=== PATIENT | female | born 1980 | race Caucasian/White ===

== ENCOUNTER 2023-10-24 17:53 | Emergency (ER) | payer SELFPAY ==
[2023-10-24 18:01] VITALS: BP 107/77; PULSE 71; RESP 16; TEMP 36.4; O2SAT 99; BMI 25.4
--- NOTE | 2023-10-24 18:53 | ED_ITS ---
HPI - Abdominal Pain 2 General: Chief Complaint: Abdominal Pain Stated Complaint: Abd pain Time Seen by Provider: 10/24/23 18:51 History of Present Illness: 43-year-old female comes in today for co mplaints of nausea vomiting diarrhea x 3 days. 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 Patient reports no other medical problems. Patient appears nontoxic. Patient appears in mild to no pain. Associated Symptoms: Reports diarrhea, nausea and vomiting Review of Systems 2 General: Reports: 10 or more systems reviewed and unremarkable except in HPI and below GI: Reports: nausea, vomiting and diarrhea Physical Exam 2 Const: COMMON NORMALS: alert HENMT: COMMON NORMALS: normocephalic HEAD & SCALP: normocephalic THROAT: posterior oropharynx normal Neck/C-Spine: COMMON NORMALS: full ROM Resp: COMMON NORMALS: normal respiratory effort and clear to auscultation bilaterally AUSCULTATION: clear to auscultation bilaterally Cardio: COMMON NORMALS: regular rate and regular rhythm RATE: regular rate RHYTHM: regular rhythm GI: COMMON NORMALS: Soft to palpation and non-tender PALPATION: Yes Soft to palpation Back/Pelvis: COMMON NORMALS: thoracic and lumbar spine normal to inspection Neuro: SENSORIUM/ORIENTATION: Yes alert Course 2 Vital Signs: Vital signs: Vital Signs Temperature 97.5 F L 10/24/23 18:01 Pulse Rate 71 10/24/23 20:23 Respiratory Rate 16 10/24/23 20:23 Blood Pressure 108/70 10/24/23 20:23 Pulse Oximetry 100 10/24/23 20:23 Oxygen Delivery Me thod Room Air 10/24/23 18:01 MDM - Abdominal Pain Medical Decision Making Patient presents with 3-day history of nausea vomiting diarrhea. Patient appears nontoxic. Patient appears in mild to no pain. Respirations are even. Abdomen soft nontender. Differential diagnosis includes but not limited to bowel obstruction, gastroenteritis, dehydration. CBC was unremarkable. CMP had a sodium of 132. Patient was given a dose of Lomotil and 1 dose of Bentyl but left prior to taking the medication. I discussed with patient the need to wait until all test results are back the patient did not want to wait for further testing. Initial review of the x-ray noted large amount of gas and air pattern in the bowel that could be suggestive of ileus or small bowel obstruction. Patient did not want to wait further for any further testing and left AGAINST MEDICAL ADVICE. Lab Data 10/24/23 19:35 10/24/23 19:35 Labs/Radiology: Laboratory Results WBC 7.62 10^3/uL (3.29-11.43) 10/24/23 19:35 RBC 5.20 10^6/uL (3.85-5.65) 10/24/23 19:35 Hgb 15.60 g/dL (11.27-16.99) 10/24/23 19:35 Hct 50.8 % (36-47) H 10/24/23 19:35 MCV 97.7 fl (85-98) 10/24/23 19:35 MCH 30.0 pg (27-33) 10/24/23 19:35 MCHC 30.7 g/dL (30-55) 10/24/23 19:35 RDW 13.9 % (12.1-15.1) 10/24/23 19:35 Plt Count 253 10^3/cmm (157-399) 10/24/23 19:35 MPV 9.5 fL (7.4-10.4) 10/24/23 19:35 Neut % (Auto) 70.7 % 10/24/23 19:35 Lymph % (Auto) 19.3 % 10/24/23 19:35 [place] % (Auto) 8.8 % 10/24/23 19:35 Eos % (Auto) 0.4 % 10/24/23 19:35 Baso % (Auto) 0.3 % 10/24/23 19:35 Neut # (Auto) 5.39 10^3/uL (1.8-7.7) 10/24/23 19:35 Lymph # (Auto) 1.5 10^3/uL (0.8-4.8) 10/24/23 19:35 [place] # (Auto) 0.7 10^3/uL (0.2-0.9) 10/24/23 19:35 Eos # (Auto) 0.0 10^3/uL (0.0-0.8) 10/24/23 19:35 Baso # (Auto) 0.0 10^3/uL (0.0-0.1) 10/24/23 19:35 Nucleated RBC % (auto) 0 % 10/24/23 19:35 Nucleated RBCs # 0.0 /100WBC 10/24/23 19:35 Sodium 132 mmol/L (136-145) L 10/24/23 19:35 Potassium 3.6 mmol/L (3.5-5.1) 10/24/23 19:35 Chloride 102 mmol/L (98-107) 10/24/23 19:35 Carbon Dioxide 16 mmol/L (22-29) L 10/24/23 19:35 Anion Gap 17.6 (5-19) 10/24/23 19:35 BUN 9 mg/dL (6-20) 10/24/23 19:35 Creatinine 0.7 mg/dL (0.5-0.9) 10/24/23 19:35 GFR Calculation 90.9 mL/min (90-130) 10/24/23 19:35 Glucose 90 mg/dL (65-115) 10/24/23 19:35 Calculated Osmolality 272 mOsm/kg (285-295) L 10/24/23 19:35 Calcium 9.2 mg/dL (8.5-10.5) 10/24/23 19:35 Total Bilirubin 0.3 mg/dL (0.15-1.2) 10/24/23 19:35 AST 88 U/L (0-32) H 10/24/23 19:35 ALT 203 U/L (0-33) H 10/24/23 19:35 Alkaline Phosphatase 29 U/L (35-105) L 10/24/23 19:35 Total Protein 7.6 g/dL (6.6-8.7) 10/24/23 19:35 Albumin 3.8 g/dL (3.5-5.2) 10/24/23 19:35 Globulin 3.8 g/dL (1.3-4.6) 10/24/23 19:35 Lipase 21 U/L (13-60) 10/24/23 19:35 HCG, Qual Negative (Negative) 10/24/23 19:35 Urine Color Yellow (Yellow) 10/24/23 20:07 Urine Appearance Cloudy (CLEAR) A 10/24/23 20:07 Urine pH 5 (5-7) 10/24/23 20:07 Ur Specific [place] 1.015 (1.005-1.030) 10/24/23 20:07 Urine Protein Trace (Negative) 10/24/23 20:07 Urine Glucose (UA) Norm (Normal) 10/24/23 20:07 Urine Ketones Negative (Negative) 10/24/23 20:07 Urine Blood 2+ (Negative) H 10/24/23 20:07 Urine Nitrate Negative (Negative) 10/24/23 20: Urine Bilirubin Neg (Negative) 10/24/23 20:07 Urine Urobilinogen Neg mg/dL (Negative) 10/24/23 20:07 Ur Leukocyte Esterase Negative (Negative) 10/24/23 20:07 Urine RBC 0-4 /hpf (0-2) H 10/24/23 20:07 Urine WBC 5-10 /hpf (0-5) H 10/24/23 20:07 Ur Squamous Epith Cells 5-10 /hpf (0-5) H 10/24/23 20:07 Amorphous Sediment Not Reportable 10/24/23 20:07 Urine Bacteria 1+ /hpf (NONE) H 10/24/23 20:07 Urine Mucus 2+ /hpf 10/24/23 20:07 XR interpretation done by ED provider, pending radiology final review Discharge Plan Discharge Condition: Stable Coding Level of Care Code ED Pediatric Ophthalmologist for Sindy Watkins
[2023-10-24] MEDS: sodium chloride 0.9% 1,000 ML 999 ML IV (19:27)
[2023-10-24 19:45] LABS: Basophils % 0.3 %; Eosinophils % 0.4 %; Hematocrit 50.8 % (36-47); Lymphocytes # 1.5 10^3/uL (0.8-4.8); Lymphocytes % 19.3 %; Mean Corpuscular HGB Conc 30.7 g/dL (30-55); Mean Corpuscular Volume 97.7 fl (85-98); Mean Platelet Volume 9.5 fL (7.4-10.4); Monocytes # 0.7 10^3/uL (0.2-0.9); Monocytes % 8.8 %; Neutrophils # 5.39 10^3/uL (1.8-7.7); Neutrophils % 70.7 %; Nucleated Red Blood Cells % 0 %; Platelet Count 253 10^3/cmm (157-399); Red Cell Distribution Width 13.9 % (12.1-15.1); White Blood Count 7.62 10^3/uL (3.29-11.43)
[2023-10-24 19:55] LABS: HCG, Serum Qual Negative (Negative)
[2023-10-24] MEDS: ondansetron 4 MG Tablet PO (20:05)
[2023-10-24 20:23] VITALS: BP 108/70; PULSE 71; RESP 16; O2SAT 100
[2023-10-24 20:27] LABS: Alanine Aminotransferase 203 U/L (0-33); Albumin Level 3.8 g/dL (3.5-5.2); Alkaline Phosphatase 29 U/L (35-105); Anion Gap 17.6 (5-19); Aspartate Amino Transferase 88 U/L (0-32); Blood Urea Nitrogen 9 mg/dL (6-20); Calcium 9.2 mg/dL (8.5-10.5); Carbon Dioxide 16 mmol/L (22-29); Chloride 102 mmol/L (98-107); Creatinine Clr Calc Pharmacy 82.3882; Globulin 3.8 g/dL (1.3-4.6); Glomerular Filtration Rate 90.9 mL/min (90-130); Glucose 90 mg/dL (65-115); Lipase 21 U/L (13-60); Osmolality Calculated 272 mOsm/kg (285-295); Potassium 3.6 mmol/L (3.5-5.1); Sodium 132 mmol/L (136-145); Total Bilirubin 0.3 mg/dL (0.15-1.2); Total Protein 7.6 g/dL (6.6-8.7)
[2023-10-24 20:37] LABS: Add Urine Microscopic? YES; Bacteria Urine 1+ /hpf; Bilirubin Urine Neg (Negative); Blood Urine 2+ (Negative); Glucose Urine UA Norm (Normal); Ketones Urine Negative (Negative); Leukocyte Esterase Urine Negative (Negative); Mucus Urine 2+ /hpf; Nitrate Urine Negative (Negative); Protein Urine Trace (Negative); RBC Urine 0-4 /hpf (0-2); Specific Gravity, Urine 1.015 (1.005-1.030); Urine Appearance Cloudy (CLEAR); Urine Color Yellow (Yellow); Urobilinogen Urine Neg (Negative); pH Urine 5 (5-7)
--- NOTE | 2023-10-24 20:47 | XRR_ITS ---
PROCEDURE INFORMATION: Exam: XR Abdomen Exam date and time: 10/24/2023 8:56 PM Age: 43 years old Clinical indication: Nausea and vomiting; Prior surgery; Surgery date: 6+ months; Surgery type: Hysterectomy; Patient HX: Abdomen pain; N/v/d TECHNIQUE: Imaging protocol: Radiologic exam of the abdomen. Views: Frontal supine view of the abdomen. 1 View. COMPARISON: No relevant prior studies available. FINDINGS: Gastrointestinal tract: Normal. No bowel dilation. Bones/joints: Unremarkable. XR/XR [id number] IMPRESSION: No acute findings.
[2023-10-24 21:15] VITALS: BP 108/70; PULSE 71; RESP 16; TEMP 36.4; O2SAT 100
== END 2023-10-24 21:16 | disposition left against medical advice (07) ==
PROVIDERS: Emergency Medicine; Emergency Provider Nurse Practitioner Family
DX: R11.2 Nausea with vomiting, unspecified (principal); R19.7 Diarrhea, unspecified; R10.9 Unspecified abdominal pain; Z53.29 Procedure and treatment not carried out because of patient's decision for other reasons
CPT/HCPCS: 74018; 80053; 81001; 83690; 84703; 85025; 99284; J7030; Q0162